=== PATIENT | female | born 1945 | race Caucasian/White ===

== ENCOUNTER 2017-06-16 09:29 | Inpatient (IN) | payer OTHER, BC ==
[2017-06-05 11:16] VITALS: BMI 28.0
--- NOTE | 2017-06-15 11:37 | HP ---
Satellite [facility] - Chief Complaint Chief Complaint: left knee pain - Past Medical History Allergies/Adverse Reactions: Allergies Allergy/AdvReac Type Severity Reaction Status Date / Time Penicillins Allergy Severe Rash Verified 06/05/17 11:44 Sulfa (Sulfonamide Allergy Severe Swelling Verified 06/05/17 11:42 Antibiotics) - Current Medications Current Medications: Home Medications Medication Instructions Recorded Alprazolam [Xanax] 0.25 mg PO PRN PRN 06/05/17 Escitalopram Oxalate [Lexapro -] 10 mg PO DAILY 06/05/17 Letrozole [Femara] 2.5 mg PO DAILY 06/05/17 Quinapril HCl 20 mg PO DAILY 06/05/17 Satellite Physical Exam - Physical Examination General Appearance: Well Nourished, Well Developed, Alert & Oriented x3 ENT: Clear Lung: Normal air movement Heart: Regular rate & rhythm Extremities: Other (left knee- + swelling, + ttp, decr rom, nvi xrays show grade 4 djd) Neurological: Intact, Alert, Oriented Satellite Impression/Plan - Impression/Plan Impression: left knee djd Operative Procedure: left niya tkr Date to be Performed: 06/16/17
[2017-06-16] MEDS ORDERED: GABAPENTIN 300 MG CAPSULE (FP) PO ONE (10:37)
[2017-06-16] MEDS ORDERED: TRANEXAMIC ACID 1000 MG/10 ML VIAL IVPUSH ONE (10:37)
[2017-06-16] MEDS ORDERED: CEFAZOLIN 1 GM/D5W 1 GM/50 ML BAG IVPB ONE (10:37)
[2017-06-16] MEDS ORDERED: oxyCODONE HCL 10 MG SUSTAINED ACTING TABLET PO ONE (10:37)
[2017-06-16] MEDS ORDERED: DEXAMETHASONE SOD PHOSPHATE/PF 10 MG/ML SDV ONE (12:17)
[2017-06-16] MEDS ORDERED: MIDAZOLAM HCL 2 MG/2 ML SINGLE DOSE VIAL ONE (12:18)
[2017-06-16] MEDS ORDERED: BUPIVACAINE LIPOSOME/PF (EXPAREL) 266 MG/20 ML VIAL ONE (12:18)
[2017-06-16] MEDS ORDERED: VANCOMYCIN 1,000 MG VIAL (RESTRICTED TO ID ONLY) ONE (13:04)
[2017-06-16] MEDS ORDERED: ceFAZolin SODIUM 1 GM VIAL ONE (13:04)
[2017-06-16] MEDS ORDERED: LIDOCAINE HCL 1%, 10 MG/ML (20ML VIAL) ONE (14:15)
[2017-06-16] MEDS ORDERED: LIDOCAINE HCL 1%, 10 MG/ML (20ML VIAL) INF ONE (14:16)
[2017-06-16] MEDS ORDERED: ONDANSETRON 4 MG/2 ML VIAL IVPUSH PRN (15:58)
[2017-06-16] MEDS ORDERED: ALPRAZolam 0.25 MG TABLET PO PRN (16:05)
[2017-06-16] MEDS ORDERED: MAGNESIUM HYDROX 2400MG/30ML ORAL SUSPENSION 30 ML CUP PO PRN (16:06)
[2017-06-16] MEDS ORDERED: MAG HYDROX/AL HYDROX/SIMETH 30 ML UNIT-DOSE CUP PO PRN (16:06)
--- NOTE | 2017-06-16 16:09 | OP ---
Operative Note - Note: Operative Date: 06/16/17 (cruz) Pre-Operative Diagnosis: left knee djd Operation: left niya tkr Post-Operative Diagnosis: Same as Pre-op Surgeon: Severo Rocha Steel Handler: Gabriele Ware Anesthesiologist/JEWELRY ENGRAVER: Aaron Kinney Anesthesia: Spinal, Local Specimens Removed: bone fragments Estimated Blood Loss (mls): 200 Operative Report Dictated: Yes
[2017-06-16] MEDS ORDERED: ACETAMINOPHEN 325 MG TABLET (FP) PO SCH (16:15)
[2017-06-16] MEDS ORDERED: LACTATED RINGERS SOLUTION 1,000 ML IV SCH (16:15)
[2017-06-16] MEDS ORDERED: ONDANSETRON 4 MG/2 ML VIAL ONE (16:29)
[2017-06-16] MEDS ORDERED: ACETAMINOPHEN 325 MG TABLET (FP) ONE (16:30)
[2017-06-16] MEDS ORDERED: ONDANSETRON 4 MG/2 ML VIAL IVPUSH ONE (16:32)
[2017-06-16] MEDS ORDERED: oxyCODONE HCL 5 MG TABLET ONE (16:54)
[2017-06-16] MEDS ORDERED: ACETAMINOPHEN 325 MG TABLET (FP) PO ONE (17:30)
[2017-06-16] MEDS ORDERED: oxyCODONE HCL 5 MG TABLET PO ONE (17:34)
[2017-06-16] MEDS: oxyCODONE HCL 10 MG SUSTAINED ACTING TABLET PO SCH (21:30)
[2017-06-16] MEDS: GABAPENTIN 300 MG CAPSULE (FP) PO SCH (21:30)
[2017-06-16] MEDS: SENNOSIDES/DOCUSATE COMBO (SENNA PLUS) TABLET (UD) PO SCH (21:30)
[2017-06-16] MEDS: CEFAZOLIN 1 GM/D5W 1 GM/50 ML BAG IVPB SCH (21:30)
[2017-06-16] MEDS: ACETAMINOPHEN 325 MG TABLET (FP) PO SCH (23:29)
[2017-06-17] MEDS: CEFAZOLIN 1 GM/D5W 1 GM/50 ML BAG IVPB SCH (05:12)
[2017-06-17] MEDS: ACETAMINOPHEN 325 MG TABLET (FP) PO SCH ×4 (05:13→16:44)
[2017-06-17] MEDS: ASPIRIN 325 MG TABLET PO SCH (08:14)
[2017-06-17 08:50] LABS: HEMOGLOBIN 11.4 GM/dl (10.7-15.3); WHITE BLOOD COUNT 10.6 K/mm3 (4.0-10.8)
[2017-06-17 08:59] LABS: HEMATOCRIT 32.5 % (32.4-45.2); MCH 32.1 pg (25.7-33.7); MEAN CELL VOLUME 91.6 fl (80-96); MEAN PLT VOLUME 9.2 fl (7.5-11.1); PLATELET COUNT 193 K/MM3 (134-434); RBC 3.55 M/mm3 (3.60-5.2); RDW 13.5 % (11.6-15.6)
[2017-06-17] MEDS: PANTOPRAZOLE 40 MG TABLET (FP) PO SCH (09:26)
[2017-06-17] MEDS: GABAPENTIN 300 MG CAPSULE (FP) PO SCH ×2 (09:26→21:32)
[2017-06-17] MEDS: ESCITALOPRAM OXALATE 10 MG TABLET (FP) PO SCH (09:26)
[2017-06-17] MEDS: QUINAPRIL HCL 20 MG TABLET (FP) PO SCH (09:26)
[2017-06-17] MEDS: SENNOSIDES/DOCUSATE COMBO (SENNA PLUS) TABLET (UD) PO SCH ×2 (09:27→21:29)
[2017-06-17] MEDS: oxyCODONE HCL 10 MG SUSTAINED ACTING TABLET PO SCH ×2 (09:27→21:29)
[2017-06-17] MEDS: MULTIVITAMINS (DAILY MVI) TABLET (FP) PO SCH (09:27)
[2017-06-17] MEDS: LETROZOLE 2.5 MG TABLET (FP) PO SCH (09:28)
--- NOTE | 2017-06-17 09:42 | PN ---
Progress Note (short form) - Note Progress Note: 71F POD1 s/p L TKR under spinal anesthetic with peripheral nerve blocks for post operative pain relief. Pt states that pain is well controlled and reports no anesthetic complications. AVSS. Sensory and motor function intact in bilateral lower extremities. Continue current regimen.
[2017-06-17] MEDS: LACTATED RINGERS SOLUTION 1,000 ML IV SCH ×2 (10:27→16:41)
[2017-06-17] MEDS: oxyCODONE HCL 5 MG TABLET PO PRN ×3 (16:41→22:29)
[2017-06-17 20:24] VITALS: TEMP 98.8
[2017-06-18] MEDS: ACETAMINOPHEN 325 MG TABLET (FP) PO SCH ×2 (00:35→05:30)
[2017-06-18] MEDS: oxyCODONE HCL 5 MG TABLET PO PRN (05:31)
[2017-06-18 07:17] VITALS: BP 112/44; PULSE 96
[2017-06-18 08:04] LABS: HEMOGLOBIN 9.4 GM/dl (10.7-15.3); MCHC 34.8 g/dl (32.0-36.0); MEAN CELL VOLUME 91.9 fl (80-96); MEAN PLT VOLUME 8.4 fl (7.5-11.1); PLATELET COUNT 148 K/MM3 (134-434); RBC 2.94 M/mm3 (3.60-5.2); RDW 13.4 % (11.6-15.6); WHITE BLOOD COUNT 7.9 K/mm3 (4.0-10.8)
--- NOTE | 2017-06-18 08:24 | PN ---
Progress Note (short form) - Note Progress Note: Ortho Pt seen and examined s/p left niya tkr pod #2 Selected Entries 06/18/17 07:16 Temperature 98.8 F Pulse Rate 96 H Respiratory 19 Rate Blood Pressure 112/44 Laboratory Tests 06/17/17 08:00 WBC 10.6 Hgb 11.4 Hct 32.5 Plt Count 193 dressing c/d/i, calf soft, nt rom 0-40, nvi a/p PT dvt ppx pain control d/c home today f/u in 1 week
--- NOTE | 2017-06-18 08:26 | DS ---
Physical Examination Vital Signs: Vital Signs Temperature 98.8 F 06/18/17 07:16 Pulse Rate 96 H 06/18/17 07:16 Respiratory Rate 19 06/18/17 07:16 Blood Pressure 112/44 06/18/17 07:16 O2 Sat by Pulse Oximetry (%) 97 06/18/17 07:16 Discharge Summary Reason For Visit: OSTEOARTHRITIS Procedures: Principal: s/p left tkr Hospital Course: admitted for elective left niya tkr, uneventful post-op, stable for d/c Condition: Good - Instructions Diet, Activity, Other Instructions: Post-op Instructions-Total Knee Replacement Call the office for a follow-up appointment in 1 week - [phone] Aspirin 325mg daily for 6 weeks. Pain medication was sent into your pharmacy. Apply Graduated Compression Stockings (TEDs) to both lower extremities- remove daily for hygiene ONLY Apply Sequential Compression Device (SCDs) to both Lower extremities remove for PT and hygiene ONLY Apply cold packs to affected area for 15 minutes every 2 hours. Physical Therapist will come to your home for the first 5 days. You will be set up with outpatient PT at your first post-operative visit. Patient may ambulate as tolerated-encourage self care (at least every 2-3 hours while awake) with walker or cane Maintain Aquacel (waterproof) dressing to operative wound (will be removed by surgeon at first office visit) Shower with Aquacel dressing in place-if Aquacel integrity compromised, remove and apply dry sterile dressing and notify Orthopedist. DO NOT SHOWER unless Orthopedists approves without Aquacel dressing CONTACT THE OFFICE FOR ANY CHANGE IN YOUR CONDITION (for example-fever greater than 102 degrees, excessive bleeding from operative site, purulent drainage, severe swelling or pain) GO TO THE EMERGENCY ROOM IF THERE IS A MEDICAL EMERGENCY Knee Precautions: * Keep a rolled towel under affected heel while in bed or chair (to keep knee in extension) * Keep affected leg elevated except during mealtimes * DO NOT PLACE PILLOW UNDER AFFECTED KNEE * If you have any questions, please do not hesitate to call the office - [phone]. Referrals: Severo Rocha MD [Staff Physician] - Disposition: VNS/HOME HEALTH CARE - Home Medications Comprehensive Discharge Medication List: Ambulatory Orders Alprazolam [Xanax] 0.25 mg PO PRN PRN 06/05/17 Escitalopram Oxalate [Lexapro -] 10 mg PO DAILY 06/05/17 Letrozole [Femara] 2.5 mg PO DAILY 06/05/17 Quinapril HCl 20 mg PO DAILY 06/05/17 Aspirin [ASA -] 325 mg PO DAILY@0800 tablet 06/16/17 Oxycodone HCl/Acetaminophen [Percocet 5-325 mg Tablet] 1 - 2 tab PO Q6H #50 tab MDD 8 06/16/17
[2017-06-18] MEDS: ASPIRIN 325 MG TABLET PO SCH (08:44)
[2017-06-18] MEDS: QUINAPRIL HCL 20 MG TABLET (FP) PO SCH (10:32)
[2017-06-18] MEDS: SENNOSIDES/DOCUSATE COMBO (SENNA PLUS) TABLET (UD) PO SCH (10:33)
[2017-06-18] MEDS: GABAPENTIN 300 MG CAPSULE (FP) PO SCH (10:33)
[2017-06-18] MEDS: ESCITALOPRAM OXALATE 10 MG TABLET (FP) PO SCH (10:33)
[2017-06-18] MEDS: oxyCODONE HCL 10 MG SUSTAINED ACTING TABLET PO SCH (10:33)
[2017-06-18] MEDS: LETROZOLE 2.5 MG TABLET (FP) PO SCH (10:33)
[2017-06-18] MEDS: MULTIVITAMINS (DAILY MVI) TABLET (FP) PO SCH (10:34)
[2017-06-18] MEDS: PANTOPRAZOLE 40 MG TABLET (FP) PO SCH (10:34)
--- NOTE | 2017-06-18 15:02 | OP ---
DATE OF OPERATION: 06/16/2017 PREOPERATIVE DIAGNOSIS: Degenerative joint disease, left knee. POSTOPERATIVE DIAGNOSIS: Degenerative joint disease, left knee. PROCEDURE: Left total knee replacement with robotic-assisted navigation (Makoplasty). SURGICAL ATTENDING: Severo Rocha MD SPRAY PAINTER: TERRIE Douglas ANESTHESIA: Regional and spinal. CLOSURE: A Triathlon knee system with 6 femur, 5 tibia, 9 polyethylene, 32 patella, number 1 Vicryl fascia, 0 and 2-0 subcutaneous, 3-0 Monocryl subcuticular with skin glue for skin, 4-0 undyed Vicryl for pin sites. ESTIMATED BLOOD LOSS: Less than 100 mL. COMPLICATIONS: None. CONDITION: Recovery room in stable condition. DESCRIPTION OF OPERATIVE PROCEDURE: Patient was taken to the operating room on June 16, 2017. Regional and spinal anesthesia was administered by the anesthesiologist. IV Kefzol was administered prophylactically prior to the case. The left lower extremity was prepped and draped in the usual sterile fashion. Prior to surgery, patient had a flexion contracture between 20 and 25 degrees. The left lower extremity was prepped and draped in the usual sterile fashion. A midline longitudinal incision approximately 12 cm was incised. Hemostasis achieved with Bovie cautery. Sharp dissection was carried down to the level of the extensor mechanism with sufficient flaps made lateral to perform the procedure. A medial parapatellar arthrotomy was then performed, the patella was inverted, and the knee was flexed up. Subperiosteal dissection was done on the anteromedial proximal tibia until the knee was able to be brought forward. This was facilitated by taking the ACL and PCL, medial and lateral malleoli. The 2 pins were placed in parallel fashion through a small stab incision 1 handbreadth below the tibial tubercle, into the tibia. Two were placed in the femur and the proximal aspect of the incision from anterior to posterior, through the outer cortex, but up unto but not through the posterior cortex. Through these, pins were fastened to the navigation arrays. The knee was then registered with center rotation of the hip. Medial and lateral malleoli and multiple sites on the femur and the tibia. Excellent registration was obtained. Confirmation was confirmed by "popping the bubbles." Osteophytes were then removed. We had to take off some posterior condyle in order to strip off osteophytes posteriorly in order to get the knee to be able to be more in extension, so that we can manipulate the virtual components on the navigation device. After doing so, we were able to do that well. The optimum position for those components was performed. We took off more distal femur in order to help with the flexion contractures. Instead of the normal 8, we took off 11 distal femur. Once this was obtained, the robot was brought in the field, was registered, and it cut through the bone with the exact specifications of our virtual position of our components. Trial reduction with a 6 femur, 5 tibia, and 9 insert achieved full extension and equal balancing medial and laterally in both full extension and at 90 degrees of flexion. A trial polyethylene with 9-mm insert achieved excellent range of motion in full extension to full flexion, with good stability throughout. The patella was calibrated and cut to the appropriate level. A 32 lollipop was used to drill the lug holes. A trial component was applied, and the patient was taken through a range of motion and found to have excellent tracking of the patella throughout. The trial components were removed. The keel was then punched and drilled. The real components were then cemented in using modern generation cement techniques and antibiotic cement. The knee was then thoroughly inspected to remove any excess cement. Again, range of motion was found to be excellent, full extension, full flexion, with excellent tracking of the patella throughout. The medial parapatellar arthrotomy was then closed. Prior to doing so, vancomycin powder was placed inside the knee as per protocol. Post closure of the arthrotomy, the knee was taken through a range of motion and again had excellent tracking and excellent range of motion. The subcutaneous was pulse antibiotic irrigated, then closed in layers 0 and 2-0 and 3-0 Monocryl subcuticular with the skin glue for the skin, 4-0 undyed Vicryl for pin sites after the pins were removed. A sterile Aquacel dressing was applied. Patient was awakened from anesthesia and transferred to Recovery in stable condition. Tourniquet was not used during the case. Estimated blood loss was approximately 800 mL. No complications. Jacquelyn [id number]
--- NOTE | 2017-06-19 12:23 | PATH ---
Surgical Pathology Report Patient Name: TOMY HOBBS Med. Rec. #: [id number] /Age/Gender: 1945 (Age: 71) / F Account: [id number] Location: [facility] MED-SURG Taken: 06/16/2017 Received: 06/16/2017 Reported: 06/19/2017 Physicians: Severo Rocha M.D. Specimen(s) Received LEFT KNEE BONE AND SOFT TISSUE Clinical History Osteoarthritis Final Diagnosis BONE AND SOFT TISSUE, LEFT KNEE, REPLACEMENT: DEGENERATIVE JOINT DISEASE. Electronically Signed Cruz Herring M.D. Gross Description Received in formalin labeled "bone and soft tissue left knee," is a 14.0 x 9.0 x 2.0 cm aggregate of multiple irregular portions of bone and soft tissue. The tibial plateau measures 7.5 x 5.2 x 2.0 cm. There is a 2 cm in greatest dimension area of eburnation identified. The remaining articular surfaces are garcia-yellow and diffusely granular. The underlying trabecular bone is yellow and hard. It Desktop Support Specialist sections are submitted in one cassette, following decalcification. 06/18/2017 saudi06/18/2017
== END 2017-06-18 12:15 | disposition home health service (06) | DRG 470 ==
LOC: FM/S 09:29
PROVIDERS: ADMIT Orthopaedic Surgery; ATTEND Orthopaedic Surgery
PROC: 8E0Y0CZ Robotic Assisted Procedure of Lower Extremity, Open Approach (ICD-10-PCS; 2017-06-16)
PROC: 0SRD0J9 Replacement of Left Knee Joint with Synthetic Substitute, Cemented, Open Approach (ICD-10-PCS; principal; 2017-06-16 14:15)
DX: M17.12 Unilateral primary osteoarthritis, left knee (principal); Z88.0 Allergy status to penicillin
CPT/HCPCS: 36415; 73560-TC-LT-FY; 85027; 88304-TC; 88311-TC; 94010; 94760; 97116-GP; 97162-GP

== ENCOUNTER 2017-08-25 07:24 | Inpatient (IN) | payer OTHER, BC ==
[2017-08-21 15:53] VITALS: BMI 28.7
[2017-08-25] MEDS ORDERED: TRANEXAMIC ACID 1000 MG/10 ML VIAL IVPUSH ONE (07:45)
[2017-08-25] MEDS ORDERED: GABAPENTIN 300 MG CAPSULE (FP) PO ONE (07:45)
[2017-08-25] MEDS ORDERED: CEFAZOLIN 2 GM in DEXTROSE 5%-WATER - 50 ML IVPB ONE (07:45)
[2017-08-25] MEDS ORDERED: oxyCODONE HCL 10 MG SUSTAINED ACTING TABLET PO ONE (07:45)
--- NOTE | 2017-08-25 07:49 | HP ---
Satellite [facility] - Chief Complaint Chief Complaint: right knee pain - Past Medical History Allergies/Adverse Reactions: Allergies Allergy/AdvReac Type Severity Reaction Status Date / Time Penicillins Allergy Severe Rash Verified 08/21/17 15:41 Sulfa (Sulfonamide Allergy Severe Swelling Verified 08/21/17 15:41 Antibiotics) egg Allergy Verified 08/21/17 16:03 - Current Medications Current Medications: Home Medications Medication Instructions Recorded Alprazolam [Xanax] 0.25 mg PO PRN PRN 06/05/17 Escitalopram Oxalate [Lexapro -] 10 mg PO DAILY 06/05/17 Letrozole [Femara] 2.5 mg PO DAILY 06/05/17 Quinapril HCl 20 mg PO DAILY 06/05/17 Satellite Physical Exam - Physical Examination General Appearance: Well Nourished, Well Developed, Alert & Oriented x3 ENT: Clear Lung: Normal air movement Heart: Regular rate & rhythm Extremities: Other (right knee- + swelling, + ttp, decr rom, nvi xrays show grade 4 tricompartmental djd) Neurological: Intact, Alert, Oriented Satellite Impression/Plan - Impression/Plan Impression: right knee djd Operative Procedure: right niya tkr Date to be Performed: 08/25/17
[2017-08-25] MEDS ORDERED: MIDAZOLAM HCL 2 MG/2 ML SINGLE DOSE VIAL ONE (08:56)
[2017-08-25] MEDS ORDERED: SODIUM CHLORIDE 0.9% P/F 10 ML VIAL IJ ONE (08:56)
[2017-08-25] MEDS ORDERED: BUPIVACAINE LIPOSOME/PF (EXPAREL) 266 MG/20 ML VIAL ONE (08:56)
[2017-08-25] MEDS ORDERED: BUPIVACAINE HCL/PF (5 MG/ML) 30 ML VIAL IJ ONE (08:56)
[2017-08-25] MEDS ORDERED: VANCOMYCIN 1,000 MG VIAL (RESTRICTED TO ID ONLY) ONE (09:22)
[2017-08-25] MEDS ORDERED: ceFAZolin SODIUM 1 GM VIAL ONE ×2 (09:22→09:53)
[2017-08-25] MEDS ORDERED: BUPIVACAINE 0.75% IN DEXTROSE/PF 2ML AMPULE NR ONE (09:42)
[2017-08-25] MEDS ORDERED: PROPOFOL 20 ML ONE ×3 (09:42)
[2017-08-25] MEDS ORDERED: TRANEXAMIC ACID 1000 MG/10 ML VIAL ONE ×2 (09:57→11:22)
[2017-08-25] MEDS ORDERED: DEXAMETHASONE SOD PHOSPHATE 4 MG/1 ML VIAL ONE ×3 (10:01→11:36)
[2017-08-25] MEDS ORDERED: ONDANSETRON 4 MG/2 ML VIAL ONE ×2 (10:01→11:22)
[2017-08-25] MEDS ORDERED: MAG HYDROX/AL HYDROX/SIMETH 30 ML UNIT-DOSE CUP PO PRN (11:56)
[2017-08-25] MEDS ORDERED: ALPRAZolam 0.25 MG TABLET PO PRN (11:56)
[2017-08-25] MEDS ORDERED: MAGNESIUM HYDROX 2400MG/30ML ORAL SUSPENSION 30 ML CUP PO PRN (11:56)
--- NOTE | 2017-08-25 11:59 | OP ---
Operative Note - Note: Operative Date: 08/25/17 (cruz) Pre-Operative Diagnosis: right knee djd Operation: right niya tkr Post-Operative Diagnosis: Same as Pre-op Surgeon: Severo Rocha Yarder Boss: Gabriele Ware Anesthesiologist/AIRPLANE TUBE BUILDER: Lorenzo Turner Anesthesia: Spinal, Local Specimens Removed: bone fragments Estimated Blood Loss (mls): 150 Operative Report Dictated: Yes
[2017-08-25] MEDS ORDERED: LACTATED RINGERS SOLUTION 1,000 ML IV SCH (12:00)
[2017-08-25] MEDS ORDERED: ONDANSETRON 4 MG/2 ML VIAL IVPUSH PRN (12:09)
[2017-08-25] MEDS ORDERED: ONDANSETRON 4 MG/2 ML VIAL IVPUSH ONE (12:25)
--- NOTE | 2017-08-25 12:32 | SPEC ---
DATE OF OPERATION: 08/25/2017 PREOPERATIVE DIAGNOSIS: Degenerative joint disease, right knee. POSTOPERATIVE DIAGNOSIS: Degenerative joint disease, right knee. PROCEDURE: Right total knee replacement with robotic-assisted navigation (Makoplasty). SURGICAL ATTENDING: Severo Rocha M.D. DRUPAL WEB DEVELOPER: TERRIE Douglas ANESTHESIA: Regional and spinal. CLOSURE: A cemented Triathlon knee system with a 5 femur, 4 tibia, 11 polyethylene, 32 patella, number 1 Vicryl fascia, 0 and 2-0 subcutaneous, 3-0 Monocryl subcuticular with skin glue for skin, 4-0 undyed Vicryl for pin sites. ESTIMATED BLOOD LOSS: Negligible. COMPLICATIONS: None. CONDITION: To recovery room in stable condition. DESCRIPTION OF OPERATIVE PROCEDURE: Patient was taken to the operating room on August 25, 2017. Regional and general anesthesia was administered by the anesthesiologist. IV Kefzol and TXA were administered by the anesthesiologist. Well-padded pneumatic tourniquet was placed on the proximal thigh. The right lower extremity was prepped and draped in the usual sterile fashion. The leg was exsanguinated with an Esmarch bandage, and tourniquet was inflated to 275 mmHg. A 12 to 15-cm longitudinal midline incision was incised while centered over the patella. The dissection was carried down to the level of the extensor mechanism with sufficient flaps made to adequately perform the procedure. A medial parapatellar arthrotomy was then performed. We made a cuff of tissue on the patella for later closure. The patella was inverted, the knee was flexed up. The fat pad was excised. The subperiosteal dissection was on the anteromedial proximal tibia around towards the direction of the MCL. The ACL and the PCL were transected and debrided. The meniscal remnants of the medial and lateral meniscus were debrided and removed. This allowed the knee to be able to "be brought forward." The checkpoints were malleted into the tibia and into the femur. Two threaded pins were drilled anteroposteriorly proximal to the knee through the previous incision, through the anterior cortex, then just engaging the posterior cortex. To these pins was assembled the femoral navigation array. One handbreadth below the tibial tubercle, 2 stab incisions were used to drill 2 threaded pins in parallel fashion into the tibia, again through the anterior cortex and just engaging the posterior cortex. To these pins was fastened the tibial arrays. The knee was then registered with the navigation device with center of rotation of the hip, medial and lateral malleoli, both checkpoints, and multiple points on both the femur and the tibia to ensure excellent registration. The navigation device was directed off the "top of the bubbles" on both the femur and the tibia. The navigation passed within less than 0.5 mm to plan. The knee was then thoroughly inspected to remove all osteophytes both medially, laterally, and on the femur and the tibia, and whatever osteophytes were available for dissection. The knee was then taken to extension and to flexion, and stressed in both varus and valgus to assess flexion gaps. The virtual position of the components on the navigation device were then manipulated to optimize the position and to ensure equal gaps in both flexion and extension, and both medially and laterally. The robot was then brought into the field and was registered. The cuts were then made both on the femur and on the tibia as to plan. All osteophytes posteriorly were then removed as well. The gaps were then measured again in flexion and extension to be equal in both flexion and extension and medial and laterally. The femoral notch was then made, as we were doing a posterior stabilizing component, with the appropriate sized box. Trial reduction of the femur achieved excellent [id number] fit. A tibial baseplate of appropriate polyethylene thickness was "floated in the knee." It was ensured to be in the excellent position by navigation devices and was pinned in place. The knee was taken through a range of motion, and found to have excellent stability throughout flexion and extension. The patella was calibrated for thickness and osteotomized down to the appropriate level. The appropriate lollipop was used to drill the lug holes in the patella and the trial button was applied. The knee was taken through a range of motion and found to have excellent tracking of the patella, and patella from full extension to full flexion. Trial components were removed, the keel was punched and drilled, and a sclerotic bone on the tibia was drilled to help with cement interdigitation. The knee was thoroughly irrigated with the pulse antibiotic pedicab driver. The real components were then cemented in using monitored arrangement cement techniques with antibiotic cement, and pressurization and extension. After the cement was hardened, the knee was thoroughly inspected to remove any extra cement. The real polyethylene component was then clipped into place. Range of motion, stability, and tracking were as described earlier. The checkpoints and the pins were removed. The knee was thoroughly irrigated with antibiotic irrigation. Vancomycin powder was placed into the knee for antibiotic prophylaxis. The medial parapatellar arthrotomy was then closed using number 1 Vicryl interrupted suture. After closure of the deep layer, the knee was taken through a range of motion, and found to have excellent stability of the patella with no dislocation and no undue tension on the repair. The subcutaneous was pulse antibiotic irrigated, and was then closed with 2-0 Vicryl, 3-0 Monocryl subcuticular with the skin glue for the skin. The distal tibial pin site was irrigated thoroughly as well and then closed with 4-0 undyed Vicryl. A sterile Aquacel dressing was applied, followed by a Flores dressing. Tourniquet was deflated. Total tourniquet time was approximately 75 minutes. No complications. Patient was awakened from anesthesia and transferred to recovery room in stable condition. Postoperative x-rays revealed excellent position of the components. Jacquelyn [id number]
[2017-08-25] MEDS ORDERED: ACETAMINOPHEN 325 MG TABLET (FP) PO ONE (12:35)
[2017-08-25] MEDS: ACETAMINOPHEN 325 MG TABLET (FP) PO SCH ×2 (13:00→18:30)
[2017-08-25] MEDS: CEFAZOLIN 2 GM/D5W 2 GM/50 ML ML IVPB SCH (17:35)
[2017-08-25] MEDS: oxyCODONE HCL 5 MG TABLET PO PRN (17:38)
[2017-08-25] MEDS: GABAPENTIN 300 MG CAPSULE (FP) PO SCH (21:28)
[2017-08-25] MEDS: oxyCODONE HCL 10 MG SUSTAINED ACTING TABLET PO SCH (21:28)
[2017-08-25] MEDS: SENNOSIDES/DOCUSATE COMBO (SENNA PLUS) TABLET (UD) PO SCH (21:28)
[2017-08-26] MEDS: ACETAMINOPHEN 325 MG TABLET (FP) PO SCH ×4 (00:38→18:37)
[2017-08-26] MEDS: oxyCODONE HCL 5 MG TABLET PO PRN ×3 (00:38→18:38)
[2017-08-26] MEDS: CEFAZOLIN 2 GM/D5W 2 GM/50 ML ML IVPB SCH (02:03)
[2017-08-26 08:41] LABS: HEMATOCRIT 33.8 % (32.4-45.2); HEMOGLOBIN 11.6 GM/dl (10.7-15.3); MCH 30.5 pg (25.7-33.7); MCHC 34.1 g/dl (32.0-36.0); MEAN CELL VOLUME 89.4 fl (80-96); MEAN PLT VOLUME 8.9 fl (7.5-11.1); PLATELET COUNT 171 K/MM3 (134-434); RBC 3.78 M/mm3 (3.60-5.2); RDW 13.7 % (11.6-15.6); WHITE BLOOD COUNT 9.1 K/mm3 (4.0-10.8)
--- NOTE | 2017-08-26 08:48 | PN ---
Progress Note (short form) - Note Progress Note: Ortho Pt seen and examined s/p right niya tkr pod #1 Selected Entries 06/18/17 08/26/17 07:16 06:00 Temperature 98.8 F 98.3 F Pulse Rate 96 H 68 Respiratory 19 18 Rate Blood Pressure 112/44 124/87 Laboratory Tests 06/17/17 08/26/17 08:00 07:55 WBC 10.6 9.1 Hgb 11.4 11.6 D Hct 32.5 33.8 D Plt Count 193 171 dressing c/d/i, calf soft, nt rom 0-40, nvi a/p PT dvt ppx pain control d/c home tomorrow if stable
[2017-08-26] MEDS: ASPIRIN 325 MG TABLET PO SCH (09:13)
[2017-08-26] MEDS: PANTOPRAZOLE 40 MG TABLET (FP) PO SCH (09:14)
[2017-08-26] MEDS: MULTIVITAMINS (DAILY MVI) TABLET (FP) PO SCH (09:14)
[2017-08-26] MEDS: SENNOSIDES/DOCUSATE COMBO (SENNA PLUS) TABLET (UD) PO SCH ×2 (09:14→21:07)
[2017-08-26] MEDS: QUINAPRIL HCL 20 MG TABLET (FP) PO SCH (09:15)
[2017-08-26] MEDS: ESCITALOPRAM OXALATE 10 MG TABLET (FP) PO SCH (09:15)
[2017-08-26] MEDS: LETROZOLE 2.5 MG TABLET (FP) PO SCH (09:15)
[2017-08-26] MEDS: GABAPENTIN 300 MG CAPSULE (FP) PO SCH ×2 (09:17→21:06)
[2017-08-26] MEDS: oxyCODONE HCL 10 MG SUSTAINED ACTING TABLET PO SCH ×2 (09:17→21:06)
--- NOTE | 2017-08-26 10:28 | PN ---
Progress Note (short form) - Note Progress Note: Post op day#1.S/p Right total knee replacement under spinal anesthesia with R adductor canal and popletial N block uneventful.Patient stable and has pain score of 2-3/10.No any anesthesia related problem.Patient DC from the anesthesia care.
[2017-08-27] MEDS: ACETAMINOPHEN 325 MG TABLET (FP) PO SCH ×2 (00:24→06:11)
[2017-08-27 05:55] VITALS: PULSE 83
[2017-08-27] MEDS: oxyCODONE HCL 5 MG TABLET PO PRN (06:13)
[2017-08-27 07:27] LABS: HEMATOCRIT 30.1 % (32.4-45.2); MCH 29.8 pg (25.7-33.7); MCHC 33.3 g/dl (32.0-36.0); MEAN CELL VOLUME 89.4 fl (80-96); MEAN PLT VOLUME 8.2 fl (7.5-11.1); PLATELET COUNT 163 K/MM3 (134-434); RBC 3.37 M/mm3 (3.60-5.2); RDW 13.8 % (11.6-15.6); WHITE BLOOD COUNT 7.3 K/mm3 (4.0-10.8)
[2017-08-27] MEDS: ASPIRIN 325 MG TABLET PO SCH (07:54)
--- NOTE | 2017-08-27 08:37 | PN ---
Progress Note (short form) - Note Progress Note: Ortho Pt seen and examined s/p right niya tkr pod #2 Selected Entries 08/27/17 05:40 Temperature 99.6 F Pulse Rate 83 Respiratory 18 Rate Blood Pressure 125/51 Laboratory Tests 08/27/17 07:16 WBC 7.3 Hgb 10.0 L D Hct 30.1 L Plt Count 163 dressing c/d/i, calf soft, nt rom 0-40, nvi a/p PT dvt ppx pain control d/c home today f/u in1 week
--- NOTE | 2017-08-27 08:37 | DS ---
Physical Examination Vital Signs: Vital Signs Temperature 99.6 F 08/27/17 05:40 Pulse Rate 83 08/27/17 05:40 Respiratory Rate 18 08/27/17 05:40 Blood Pressure 125/51 08/27/17 05:40 O2 Sat by Pulse Oximetry (%) 94 L 08/27/17 05:40 Labs: CBC, BMP 08/27/17 07:16 Discharge Summary Reason For Visit: OSTEOARTHRITIS Procedures: Principal: s/p right niya tkr Hospital Course: admitted for elective right niya tkr, uneventful post-op, stable for d/c Condition: Good - Instructions Diet, Activity, Other Instructions: Post-op Instructions-Total Knee Replacement Call the office for a follow-up appointment in 1 week - [phone] Aspirin 325mg daily for 6 weeks. Pain medication was sent into your pharmacy. Apply Graduated Compression Stockings (TEDs) to both lower extremities- remove daily for hygiene ONLY Apply Sequential Compression Device (SCDs) to both Lower extremities remove for PT and hygiene ONLY Apply cold packs to affected area for 15 minutes every 2 hours. Physical Therapist will come to your home for the first 5 days. You will be set up with outpatient PT at your first post-operative visit. Patient may ambulate as tolerated-encourage self care (at least every 2-3 hours while awake) with walker or cane Maintain Aquacel (waterproof) dressing to operative wound (will be removed by surgeon at first office visit) Shower with Aquacel dressing in place-if Aquacel integrity compromised, remove and apply dry sterile dressing and notify Orthopedist. DO NOT SHOWER unless Orthopedists approves without Aquacel dressing CONTACT THE OFFICE FOR ANY CHANGE IN YOUR CONDITION (for example-fever greater than 102 degrees, excessive bleeding from operative site, purulent drainage, severe swelling or pain) GO TO THE EMERGENCY ROOM IF THERE IS A MEDICAL EMERGENCY Knee Precautions: * Keep a rolled towel under affected heel while in bed or chair (to keep knee in extension) * Keep affected leg elevated except during mealtimes * DO NOT PLACE PILLOW UNDER AFFECTED KNEE * If you have any questions, please do not hesitate to call the office - [phone]. Referrals: Severo Rocha MD [Staff Physician] - Disposition: VNS/HOME HEALTH CARE - Home Medications Comprehensive Discharge Medication List: Ambulatory Orders Alprazolam [Xanax] 0.25 mg PO PRN PRN 06/05/17 Escitalopram Oxalate [Lexapro -] 10 mg PO DAILY 06/05/17 Letrozole [Femara] 2.5 mg PO DAILY 06/05/17 Quinapril HCl 20 mg PO DAILY 06/05/17 Aspirin [ASA -] 325 mg PO DAILY@0800 tablet 08/25/17 Oxycodone HCl/Acetaminophen [Percocet 5-325 mg Tablet] 1 - 2 tab PO Q6H #50 tab MDD 8 08/25/17
[2017-08-27 09:31] VITALS: BP 104/52; TEMP 99
[2017-08-27] MEDS: QUINAPRIL HCL 20 MG TABLET (FP) PO SCH (09:33)
[2017-08-27] MEDS: MULTIVITAMINS (DAILY MVI) TABLET (FP) PO SCH (09:34)
[2017-08-27] MEDS: PANTOPRAZOLE 40 MG TABLET (FP) PO SCH (09:34)
[2017-08-27] MEDS: LETROZOLE 2.5 MG TABLET (FP) PO SCH (09:34)
[2017-08-27] MEDS: GABAPENTIN 300 MG CAPSULE (FP) PO SCH (09:35)
[2017-08-27] MEDS: oxyCODONE HCL 10 MG SUSTAINED ACTING TABLET PO SCH (09:35)
[2017-08-27] MEDS: ESCITALOPRAM OXALATE 10 MG TABLET (FP) PO SCH (09:35)
[2017-08-27] MEDS: SENNOSIDES/DOCUSATE COMBO (SENNA PLUS) TABLET (UD) PO SCH (09:36)
== END 2017-08-27 11:56 | disposition home health service (06) | DRG 470 ==
LOC: UNDOADMIN 07:24 → FM/S 07:24
PROVIDERS: ADMIT Orthopaedic Surgery; ATTEND Orthopaedic Surgery
PROC: 8E0Y0CZ Robotic Assisted Procedure of Lower Extremity, Open Approach (ICD-10-PCS; 2017-08-25)
PROC: 0SRC0J9 Replacement of Right Knee Joint with Synthetic Substitute, Cemented, Open Approach (ICD-10-PCS; principal; 2017-08-25 10:06)
DX: M17.11 Unilateral primary osteoarthritis, right knee (principal)
CPT/HCPCS: 36415; 73560-TC-RT-FY; 85027; 94010; 94760; 97116-GP; 97162-GP

== ENCOUNTER 2024-10-24 11:11 | Inpatient (IN) | payer OTHER, BC ==
[2024-10-24] MEDS ORDERED: FAMOTIDINE 20 MG/50 ML IVPB 20 MG/50 ML MG IVPB ONE (12:54)
[2024-10-24] MEDS ORDERED: ACETAMINOPHEN INJECTION 100 ML ONE (12:54)
[2024-10-24] MEDS: SODIUM CHLORIDE 1,000 ML IV STA (13:11)
[2024-10-24] MEDS: ACETAMINOPHEN 1000 MG/100 ML BAG IVPB ONE (13:11)
[2024-10-24] MEDS: FAMOTIDINE 20 MG/50 ML IVPB 20 MG/50 ML MG IVPB ONE (13:33)
[2024-10-24 13:35] LABS: ABSOLUTE IMMATURE GRANULOCYTES 0.02 x10^3/uL (0.0-0.031); BASOPHILS # 0.03 x10^3/uL (0.01-0.08); EOSINOPHIL % 2.5 % (0.7-5.8); EOSINOPHILS # 0.16 x10^3/uL (0.04-0.36); MCHC 32.4 g/dl (32.2-35.5); MEAN CELL VOLUME 90.5 fl (79.4-94.8); MEAN PLT VOLUME 11.0 fl (9.4-12.3); MONOCYTE # 0.46 x10^3/uL (0.24-0.86); MONOCYTE % 7.0 % (4.7-12.5); RDW 14.6 % (12.4-16.6)
[2024-10-24 14:17] LABS: CO2 26.0 mmol/L (21-32)
[2024-10-24 14:20] LABS: CREATININE 0.7 mg/dL (0.55-1.3); SGOT/AST 12.0 U/L (15-37); SGPT/ALT 16.0 U/L (13-61)
[2024-10-24 14:21] LABS: TOT PROT 6.3 g/dl (6.4-8.2)
[2024-10-24 14:22] LABS: GLUCOSE,RANDOM 93.0 mg/dL (74-106)
[2024-10-24 14:23] LABS: ALK PHOS 94.0 U/L (45-117)
[2024-10-24] MEDS ORDERED: ACETAMINOPHEN 500 MG TABLET (FP) PO PRN (17:08)
[2024-10-24] MEDS: CIPROFLOXACIN 500 MG TABLET (RESTRICTED TO ID) PO ONE (17:45)
[2024-10-24] MEDS: LISINOPRIL 20 MG TABLET PO SCH (21:36)
[2024-10-24] MEDS: HEPARIN NA (PORCINE) 5,000 UNITS/ML 1ML VIAL SQ SCH (21:43)
[2024-10-24] MEDS: ROSUVASTATIN CA 5 MG TABLET PO SCH (21:43)
[2024-10-25 00:58] VITALS: BMI 34.9
[2024-10-25] MEDS: GABAPENTIN 300 MG CAPSULE PO ONE (02:10)
[2024-10-25] MEDS ORDERED: CIPROFLOXACIN 400 MG/D5W 400 MG/200 ML IVPB IVPB SCH (05:00)
[2024-10-25 08:52] LABS: ABSOLUTE IMMATURE GRANULOCYTES 0.01 x10^3/uL (0.0-0.031); BASOPHILS # 0.05 x10^3/uL (0.01-0.08); EOSINOPHIL % 4.4 % (0.7-5.8); EOSINOPHILS # 0.21 x10^3/uL (0.04-0.36); MCHC 32.5 g/dl (32.2-35.5); MEAN CELL VOLUME 91.0 fl (79.4-94.8); MEAN PLT VOLUME 11.6 fl (9.4-12.3); MONOCYTE # 0.43 x10^3/uL (0.24-0.86); MONOCYTE % 9.0 % (4.7-12.5); RDW 14.6 % (12.4-16.6)
[2024-10-25 09:42] LABS: CO2 26 mmol/L (21-32); GLUCOSE,RANDOM 92 mg/dL (74-106)
[2024-10-25 09:45] LABS: CREATININE 0.7 mg/dL (0.55-1.3)
[2024-10-25] MEDS: PANTOPRAZOLE 40 MG TABLET PO SCH (09:55)
[2024-10-25] MEDS: amLODIPine BESYLATE 10 MG TABLET (FP) PO SCH (09:55)
[2024-10-25] MEDS: ESCITALOPRAM OXALATE 10 MG TABLET PO SCH (09:55)
[2024-10-25] MEDS: GABAPENTIN 300 MG CAPSULE PO SCH (22:11)
[2024-10-26 01:31] VITALS: RESP 18
[2024-10-26 07:31] VITALS: TEMP 97.5
[2024-10-26] MEDS: POLYETHYLENE GLYCOL (HEALTHYLAX) 3350 17 GM PACKET PO SCH (09:38)
[2024-10-26 09:58] LABS: ABSOLUTE IMMATURE GRANULOCYTES 0.01 x10^3/uL (0.0-0.031); BASOPHILS # 0.03 x10^3/uL (0.01-0.08); EOSINOPHIL % 4.9 % (0.7-5.8); EOSINOPHILS # 0.21 x10^3/uL (0.04-0.36); MCHC 32.5 g/dl (32.2-35.5); MEAN CELL VOLUME 90.0 fl (79.4-94.8); MEAN PLT VOLUME 11.3 fl (9.4-12.3); MONOCYTE # 0.35 x10^3/uL (0.24-0.86); MONOCYTE % 8.2 % (4.7-12.5); RDW 14.7 % (12.4-16.6)
[2024-10-26 10:43] LABS: CO2 24.0 mmol/L (21-32); GLUCOSE,RANDOM 179.0 mg/dL (74-106)
[2024-10-26 10:46] LABS: CREATININE 0.9 mg/dL (0.55-1.3); SGOT/AST 17.0 U/L (15-37); SGPT/ALT 16.0 U/L (13-61)
[2024-10-26 10:47] LABS: TOT PROT 5.9 g/dl (6.4-8.2)
[2024-10-26] MEDS: POTASSIUM CHLORIDE ORAL LIQUID 20 MEQ/15 ML PO ONE (10:48)
[2024-10-26 10:49] LABS: ALK PHOS 88.0 U/L (45-117)
[2024-10-26 12:00] VITALS: BP 128/71; PULSE 72
== END 2024-10-26 12:53 | disposition home or self-care (01) | DRG 392 ==
LOC: JER 11:11 → JERBED 16:35 → OBSVTOIN 17:26 → J8W 19:38
PROVIDERS: ADMIT Internal Medicine; ATTEND Nurse Practitioner Family
DX: K57.92 Diverticulitis of intestine, part unspecified, without perforation or abscess without bleeding (principal); I10 Essential (primary) hypertension; E78.5 Hyperlipidemia, unspecified; K21.9 Gastro-esophageal reflux disease without esophagitis; G47.00 Insomnia, unspecified
CPT/HCPCS: 36415; 74177-TC; 80048; 80053; 83690; 83735; 84484; 85025; 86140; 86850; 86900; 86901; 93005; 93010; 99285-25; G0378; Q9967